=== PATIENT | male | born 1935 | race Caucasian/White ===

== ENCOUNTER 2016-04-22 09:06 | Outpatient (CLI) | payer MEDICARE ==
[2016-04-22 10:00] LABS: Cardiac Risk 2.4 (Less than 4.5)
[2016-04-22 10:20] LABS: Thyroid Stimulating Hormone 3.6869 uIU/mL (0.35-4.94)
[2016-04-22 12:38] LABS: Vitamin D, 25 Hydroxy 39.7 ng/mL (> 30.0)
== END 2016-04-22 09:07 | disposition home or self-care (01) ==
LOC: MADLAB 09:06
PROVIDERS: ATTEND Internal Medicine Nephrology
DX: E78.5 Hyperlipidemia, unspecified (principal); E03.9 Hypothyroidism, unspecified; E55.9 Vitamin D deficiency, unspecified; E53.8 Deficiency of other specified B group vitamins; Z79.899 Other long term (current) drug therapy
CPT/HCPCS: 36415; 80061; 82306; 82607; 84443

== ENCOUNTER 2016-06-17 09:23 | Outpatient (CLI) | payer MEDICARE ==
[2016-06-17 10:28] LABS: Bilirubin Negative (Negative); Blood, Urine Trace (Negative); Clarity Clear (Clear); Glucose, Urine (Dipstick) Negative (Negative); Leukocyte Moderate (Negative); Nitrite Negative (Negative); Protein, Urine (Dipstick) Negative (Neg-Trace); Urobilinogen 0.2 mg/dL (0.2-1.0)
[2016-06-17 10:54] LABS: Albumin 4.1 g/dL (3.4-4.8); Anion Gap 15 mmol/L (10-20); BUN (Urea Nitrogen) 34 mg/dL (8.4-25.7); BUN/Creatinine Ratio 26.15; Calc. Creatinine Clearance 0 mL/min (70-130); Calcium 9.3 mg/dL (7.8-10.44); Carbon Dioxide 24 mmol/L (23-31); Cardiac Risk 2.5 (Less than 4.5); Chloride 104 mmol/L (98-107); Cholesterol 174 mg/dL (< 200 Desired); Estimated GFR-MDRD 53; Glucose 97 mg/dL (83-110); HDL Cholesterol 69 mg/dL (>60 Neg Risk); LDL Cholesterol, Calculated 95 mg/dL; Phosphorus 4.2 mg/dL (2.3-4.7); Potassium 4.5 mmol/L (3.5-5.1); Sodium 138 mmol/L (136-145); Triglycerides 52 mg/dL (Less than 150)
[2016-06-17 11:23] LABS: Hemoglobin 12.6 g/dL (14.0-18.0); Mean Corpuscular HGB CONC 33.5 g/dL (32.0-36.0); Mean Corpuscular Volume 92.5 fL (80.0-94.0); Mean Platelet Volume 6.4 fL (7.4-10.4); Platelet Count 113 thou/uL (130-400); RBC Distribution Width 13.3 % (11.5-14.5); Red Blood Cell (RBC) Count 4.07 mill/uL (4.70-6.10); White Blood Cell (WBC) Count 7.3 thou/uL (4.8-10.8)
[2016-06-17 17:31] LABS: Creatinine, Urine 40.62 mg/dL (63-166); Protein, Urine Random Quant Less than 10 mg/dL
== END 2016-06-17 09:24 | disposition home or self-care (01) ==
LOC: MADLAB 09:23
PROVIDERS: ATTEND Internal Medicine Nephrology
DX: E78.5 Hyperlipidemia, unspecified (principal); N18.4 Chronic kidney disease, stage 4 (severe); I25.10 Atherosclerotic heart disease of native coronary artery without angina pectoris; N40.0 Benign prostatic hyperplasia without lower urinary tract symptoms; D63.1 Anemia in chronic kidney disease
CPT/HCPCS: 36415; 80061; 80069; 81003; 82570; 84156; 85027

== ENCOUNTER 2017-10-11 10:46 | Emergency (ER) | payer MEDICARE ==
[~2017-10-11 10:46] MED LIST: Sodium Chloride Irrig Solution 250 ML BOT ONE
[2017-10-11] MEDS ORDERED: cefTRIAXone\\ROCEPHIN 1 GM VIAL ONE (11:36)
[2017-10-11] MEDS ORDERED: Clindamycin 150 MG CAP ONE (11:36)
[2017-10-11] MEDS ORDERED: Adacel (T-DAP) 0.5 ML VIAL ONE (11:36)
--- NOTE | 2017-10-11 11:36 | CT ---
HEAD CT WITHOUT CONTRAST: Date: 10/11/17 HISTORY: Patient fell from a step stool. Laceration. Bleeding. COMPARISON: None. TECHNIQUE: Noncontrast head CT is performed from skull base to skull vertex. FINDINGS: No parenchymal hemorrhage. No extra-axial hematoma. No midline shift. Basilar cisterns are patent. Ag e-appropriate atrophy. Cortical callejas-white matter differentiation preserved. Ventricles and sulci are patent and symmetric. Chronic small vessel ischemic changes of the white matter are identified. Adeq uate aeration of the sinuses and mastoid air cells. Mucus retention cysts are noted in the right maxi llary sinus. Calvarium is intact. IMPRESSION: No intracranial post-traumatic sequelae. POS: [facility]
[2017-10-11] MEDS ORDERED: Lidocaine 1% 20 ML MDV ONE (11:38)
== END 2017-10-11 12:00 | disposition short-term general hospital (02) ==
LOC: MADERS 10:46
DX: S01.312A Laceration without foreign body of left ear, initial encounter (principal); I25.10 Atherosclerotic heart disease of native coronary artery without angina pectoris; I10 Essential (primary) hypertension; I48.91 Unspecified atrial fibrillation; W19.XXXA Unspecified fall, initial encounter
CPT/HCPCS: 12001; 70450; 90715; J0696; J2001

== ENCOUNTER 2018-05-10 13:05 | Emergency (ER) | payer MEDICARE ==
[2018-05-10 14:17] LABS: #Basophils 0.1 thou/uL (0.0-0.2); #Lymphocytes 0.5 thou/uL (1.20-3.40); #Monocytes 1.1 thou/uL (0.11-0.59); #Neutrophils 8.2 thou/uL (1.40-6.50); %Basophils 0.8 % (0.0-1.0); %Monocytes 10.9 % (0.0-10.0); %Neutrophils 83.2 % (42.0-75.0); Hemoglobin 12.8 g/dL (14.0-18.0); Mean Corpuscular HGB CONC 32.5 g/dL (32.0-36.0); Mean Corpuscular Hemoglobin 28.8 pg (27.0-31.0); Mean Corpuscular Volume 88.7 fL (78.0-98.0); Mean Platelet Volume 5.9 fL (7.4-10.4); Platelet Count 145 thou/uL (130-400); RBC Distribution Width 12.2 % (11.5-14.5); Red Blood Cell (RBC) Count 4.44 mill/uL (4.70-6.10); White Blood Cell (WBC) Count 9.9 thou/uL (4.8-10.8)
--- NOTE | 2018-05-10 14:23 | RAD ---
FRONTAL VIEW CHEST: COMPARISON: 04/23/2015. INDICATION: Dyspnea. FINDINGS: Left side cardiac pacing device remains. There is no consolidation, effusion, or discrete pneumothor ax. Mild elevation of the right hemidiaphragm is similar. Chest otherwise stable in appearance. IMPRESSION: Stable chest. POS: [facility]
[2018-05-10 14:34] LABS: ALT (SGPT) 10 U/L (8-55); AST (SGOT) 16 U/L (5-34); Albumin 4.2 g/dL (3.4-4.8); Alkaline Phosphatase 63 U/L (40-150); Anion Gap 16 mmol/L (10-20); BUN (Urea Nitrogen) 40 mg/dL (8.4-25.7); Bilirubin, Total 1.8 mg/dL (0.2-1.2); Calc. Creatinine Clearance 0 mL/min (70-130); Calcium 9.5 mg/dL (7.8-10.44); Carbon Dioxide 28 mmol/L (23-31); Chloride 90 mmol/L (98-107); Estimated GFR-MDRD 26; Globulin 3.3 g/dL (2.4-3.5); Glucose 114 mg/dL (83-110); Lipase 6 U/L (8-78); Potassium 5.4 mmol/L (3.5-5.1); Protein, Total 7.5 g/dL (5.8-8.1); Sodium 129 mmol/L (136-145)
[2018-05-10 14:51] LABS: CKMB 1.9 ng/mL (0-6.6)
[2018-05-10 15:38] LABS: Bilirubin Negative (Negative); Blood, Urine Moderate (Negative); Glucose, Urine (Dipstick) Negative (Negative); Leukocyte Small (Negative); Nitrite Negative (Negative); Protein, Urine (Dipstick) 100 mg/dL (Neg-Trace); Specific Gravity, Urine 1.025 (1.005-1.030); Urobilinogen 0.2 mg/dL (0.2-1.0)
[2018-05-10 15:39] LABS: Bacteria/HPF 2+ HPF (None Seen); Clarity Hazy (Clear); Squamous Epithelial 0-3 HPF (0-3)
[2018-05-10] MEDS ORDERED: Sodium Chloride 0.9% 1,000 ML ONE (16:20)
[2018-05-10] MEDS ORDERED: Sodium Chloride 0.9% 100 ML ONE (16:20)
[2018-05-10] MEDS ORDERED: Aspirin 325 MG TAB ONE (16:20)
[2018-05-10] MEDS ORDERED: cefTRIAXone\\ROCEPHIN 1 GM VIAL ONE (16:20)
== END 2018-05-10 17:42 | disposition short-term general hospital (02) ==
LOC: MADERS 13:05
DX: N17.9 Acute kidney failure, unspecified (principal); N39.0 Urinary tract infection, site not specified; R79.89 Other specified abnormal findings of blood chemistry; I25.10 Atherosclerotic heart disease of native coronary artery without angina pectoris; Z79.899 Other long term (current) drug therapy; Z79.82 Long term (current) use of aspirin; Z79.01 Long term (current) use of anticoagulants
CPT/HCPCS: 36415; 71045; 80053; 81003; 81015; 82553; 83605; 83690; 84484; 85025; 87077; 87086; 87186; 93005; 96365; J0696; J7050

== ENCOUNTER 2018-06-08 10:06 | Emergency (ER) | payer MEDICARE | END 2018-06-08 10:39 | disposition home or self-care (01) | LOC: MADERS 10:06 | DX: T16.1XXA Foreign body in right ear, initial encounter (principal); T16.2XXA Foreign body in left ear, initial encounter; I25.10 Atherosclerotic heart disease of native coronary artery without angina pectoris; Z79.899 Other long term (current) drug therapy; Z79.01 Long term (current) use of anticoagulants | CPT/HCPCS: 69200 ==

== ENCOUNTER 2018-10-21 22:04 | Emergency (ER) | payer MEDICARE ==
[~2018-10-21 22:04] MED LIST changes: +Sodium Chloride 0.9% 1,000 ML BAG ONE; +Sodium Chloride 0.9% 100 ML BAG ONE; -Sodium Chloride Irrig Solution 250 ML BOT ONE
[2018-10-21 23:01] LABS: Bilirubin Negative (Negative); Blood, Urine Trace (Negative); Clarity Clear (Clear); Glucose, Urine (Dipstick) Negative (Negative); Leukocyte Negative (Negative); Nitrite Negative (Negative); Protein, Urine (Dipstick) 30 mg/dL (Neg-Trace); Urobilinogen 0.2 mg/dL (Less than 2)
[2018-10-21 23:07] LABS: Bacteria/HPF Rare-Few HPF (None Seen); Squamous Epithelial 0-3 HPF (0-3)
--- NOTE | 2018-10-21 23:08 | RAD ---
PORTABLE CHEST ONE VIEW: Date: 10-21-18 Time: 10:58 p.m. History: Altered mental status. FINDINGS: Comparison is made with exam of 05-10-18. Left sided pacemaker device remains in place. The heart size is prominent, likely due to magnificatio n. The lungs are well expanded and without focal areas of consolidation, pneumothoraces, italia pulmon aimee edema or pleural effusions. IMPRESSION: No acute process. POS: [facility]
[2018-10-21] MEDS ORDERED: cefTRIAXone\\ROCEPHIN 1 GM VIAL ONE (23:21)
[2018-10-21 23:29] LABS: #Basophils 0.1 thou/uL (0.0-0.2); #Monocytes 1.2 thou/uL (0.11-0.59); #Neutrophils 6.1 thou/uL (1.40-6.50); %Eosinophils 0.1 % (0.0-10.0); %Lymphocytes 11.9 % (21.0-51.0); %Monocytes 14.1 % (0.0-10.0); %Neutrophils 72.9 % (42.0-75.0); Anisocytosis SLIGHT = 6-15 cells (100X) (0-5/hpf); Hemoglobin 11.1 g/dL (14.0-18.0); Hypochromia SLIGHT = 6-15 cells (100X) (0-5/hpf); MDiff Complete? YES; Mean Corpuscular HGB CONC 33.6 g/dL (32.0-36.0); Mean Corpuscular Hemoglobin 30.1 pg (27.0-31.0); Mean Corpuscular Volume 89.4 fL (78.0-98.0); Mean Platelet Volume 5.4 fL (7.4-10.4); Platelet Count 120 thou/uL (130-400); Platelet Morphology Comment Appears Decreased; Poikilocytosis SLIGHT = 6-15 cells (100X) (0-5/hpf); RBC Distribution Width 12.5 % (11.5-14.5); RBC Morphology Abnormal; White Blood Cell (WBC) Count 8.3 thou/uL (4.8-10.8)
[2018-10-21 23:33] LABS: ALT (SGPT) 14 U/L (8-55); AST (SGOT) 24 U/L (5-34); Albumin 4.2 g/dL (3.4-4.8); Alkaline Phosphatase 68 U/L (40-150); Anion Gap 17 mmol/L (10-20); BUN (Urea Nitrogen) 36 mg/dL (8.4-25.7); Bilirubin, Total 1.1 mg/dL (0.2-1.2); CK (CPK) 108 U/L (30-200); Calc. Creatinine Clearance 0 mL/min (70-130); Calcium 9.8 mg/dL (7.8-10.44); Carbon Dioxide 28 mmol/L (23-31); Chloride 93 mmol/L (98-107); Estimated GFR-MDRD 33; Globulin 3.3 g/dL (2.4-3.5); Glucose 118 mg/dL (83-110); Potassium 3.9 mmol/L (3.5-5.1); Protein, Total 7.5 g/dL (5.8-8.1); Sodium 134 mmol/L (136-145)
[2018-10-22] MEDS ORDERED: Acetaminophen 500 MG TAB ONE ×2 (00:25→01:07)
== END 2018-10-22 01:05 | disposition home or self-care (01) ==
LOC: MADERS 22:04
DX: T83.511A Infection and inflammatory reaction due to indwelling urethral catheter, initial encounter (principal); N39.0 Urinary tract infection, site not specified; E86.0 Dehydration; I10 Essential (primary) hypertension; Z79.899 Other long term (current) drug therapy; Z79.01 Long term (current) use of anticoagulants
CPT/HCPCS: 51701; 71045; 80053; 81003; 81015; 82550; 85025; 87086; 96361; 96365; J0696; J3490; J7050

== ENCOUNTER 2019-03-05 11:04 | Outpatient (CLI) | payer MEDICARE ==
--- NOTE | 2019-03-05 11:24 | CT ---
EXAM: CT brain without contrast HISTORY: Altered mental status COMPARISON: 10/11/2017 TECHNIQUE: Multiple contiguous axial images were obtained and a CT of the brain without contrast. FINDINGS: There are scattered hypodensities in the subcortical and periventricular white matter consi stent with small vessel ischemic disease. There is no evidence of hydrocephalus, intracranial hemorrhage, or extra-axial fluid collection. The calvarium and overlying soft tissues are unremarkable. The visualized paranasal sinuses and masto id air cells are well aerated. IMPRESSION: No evidence of acute intracranial abnormality
== END 2019-03-05 11:05 | disposition home or self-care (01) ==
LOC: MADCT 11:04
PROVIDERS: ATTEND Internal Medicine
DX: R41.82 Altered mental status, unspecified (principal)
CPT/HCPCS: 70450

== ENCOUNTER 2019-12-12 11:57 | Emergency (ER) | payer MEDICARE | END 2019-12-12 12:56 | disposition home or self-care (01) | LOC: MADERS 11:57 | DX: T16.1XXA Foreign body in right ear, initial encounter (principal); I25.10 Atherosclerotic heart disease of native coronary artery without angina pectoris; Z79.01 Long term (current) use of anticoagulants; Z79.899 Other long term (current) drug therapy | CPT/HCPCS: 69200 ==